=== PATIENT | female | born 1960 | race Caucasian/White ===

== ENCOUNTER 2016-06-09 15:37 | Inpatient (IN) ==
[2016-06-09] MEDS ORDERED: Aspirin 81 MG TAB.CHEW PO ONE (15:46)
[2016-06-09] MEDS ORDERED: Ondansetron 4 MG/2 ML VIAL IVP ONE (15:46)
[2016-06-09] MEDS ORDERED: 0.9 % Sodium Chloride 500 ML IVC ONE (15:47)
[2016-06-09 16:06] LABS: Bilirubin,Urine Negative (Negative); Blood,Urine Negative (Negative); Clarity,Urine Clear (Clear); Color,Urine Yellow (Yellow); Glucose,Urine (UA) Normal (Normal); Ketones,Urine Trace mg/dL (Negative); Leukocyte Esterase,Urine Negative (Negative); Nitrite,Urine Negative (Negative); PH,Urine 5.5 pH Units (5.0-8.0); Protein,Urine Negative (Neg-Trace); Specific Gravity,Urine 1.021 (1.010-1.025); Urobilinogen,Urine Normal (Normal)
[2016-06-09] MEDS ORDERED: 0.9 % Sodium Chloride 1,000 ML IVC SCH (16:15)
[2016-06-09] MEDS ORDERED: Azithromycin 500 MG in D5% in Water 250 ML IVPB ONE (16:16)
[2016-06-09] MEDS ORDERED: Levofloxacin 750 MG/150 ML 750 MG/150 ML BAG IVPB ONE (16:16)
--- NOTE | 2016-06-09 16:37 | Emergency Department Note ---
Disposition Clinical Impression: Severe anemia, Hypokalemia, Hyponatremia GI bleed Qualifiers: GI bleed type/associated pathology: melena Qualified Code(s): K92.1 - Melena Disposition: Admitted As Inpatient Condition: Fair Referrals: NO,PCP [Primary Care Provider] - Time of Disposition: 20:36 General Adult HPI - General Chief complaint: ED Nausea/Vomiting/Diarrhea Stated complaint: diarrhea Source: patient Limitations: no limitations Nursing Notes Reviewed: Yes Vital Signs Reviewed: Yes - History of Present Illness HPI Narrative: Patient is a 56-year-old female presents with a week of generalized weakness, and profuse diarrhea 1 week. Patient denies any past medical history. Pain Scale: 5 - Related Data Home Medications Medication Instructions Recorded Confirmed No Known Home Drugs 06/09/16 06/09/16 Allergies Allergy/AdvReac Type Severity Reaction Status Date / Time No Known Allergies Allergy Verified 06/09/16 16:07 All systems ED: reviewed and negative except as stated. Constitutional: Reports: weakness. Denies: fever, chills ENT ED: Denies: congestion Cardiovascular: Reports: chest pain. Denies: palpitations Respiratory: Denies: cough, dyspnea, wheezes, hemoptysis Gastrointestinal: Reports: diarrhea. Denies: abdominal pain, melena, hematochezia Genitourinary: Denies: urgency, dysuria, frequency, hematuria Musculoskeletal: Denies: back pain, neck pain Neurological: Reports: weakness Endocrine: Reports: fatigue Past Medical History - Past Medical History Attestation: Yes The following information was validated with the patient. Source: patient Medical history: Reports: no medical history Psychiatric history: Reports: anxiety, depression - Social History Smoking Status: Current every day smoker Smokeless Tobacco Status: No Alcohol use: Reports: heavy Drug use: Reports: none Physical Exam - General Limitations: no limitations General appearance: alert - Head Head exam: atraumatic, normocephalic, normal inspection - Eye Eye exam: Present: PERRL, EOMI, other (Conjunctival pallor) - ENT ENT exam: normal exam, normal oropharynx, mucous membranes dry (Pale mucosa) - Neck Neck exam: Present: normal inspection, full ROM, trachea midline. Absent: tenderness, meningismus, lymphadenopathy - Chest Chest inspection: Present: normal inspection, symmetric chest wall rise. Absent : tenderness, rash - Respiratory Respiratory exam: Present: normal lung sounds bilaterally. Absent: respiratory distress, wheezes - Cardiovascular Cardiovascular exam: Present: normal rhythm, tachycardia - Abdominal Exam Abdominal exam: Present: soft, Non-Tender. Absent: tenderness, distention, guarding, rebound, rigidity, Dan's sign, Rovsing's sign, tenderness at McBurney's Point - Rectal Exam Rectal exam: Present: heme (+) stool, black stool - Female Sustainability Executive Director present during exam: Yes - Back Exam Back exam: Present: normal inspection, full ROM. Absent: tenderness, CVA tenderness (R), CVA tenderness (L) - Neurological Exam Neurological exam: Present: alert, oriented X3, CN II-XII intact, other (GCS of 15) - Psychiatric Psychiatric exam: Present: normal affect, normal mood - Skin Skin exam: Present: warm, dry, pallor. Absent: rash Course - Reevaluation(s) Reevaluation #1: Assessment: Sepsis, failure to thrive, ACS/AK, stroke, TIA Plan: Time: 16:02 Reevaluation #2: Patient is currently on a x-ray and CT Time: 16:37 Reevaluation #3: Awaiting to redraw blood patient has a hemoglobin of just over 3, blood has been ordered and has just arrived. Patient is ready had 2 L of normal saline After blood transfusion is initiated patient will be sent for CT abdomen and pelvis to assess for GI bleed cause. 2 units of O- blood have been ordered to shorten delay with a type and screen. Patient started on IV Protonix. Time: 17:56 Additional Reevaluation(s): 1825 hrs., decided to stop antibiotic therapy with ceftriaxone and Levaquin secondary to lack of evidence for pulmonary etiology. With the patient's diarrhea history it may be GI related. He says he initiated antibiotic therapy with Zosyn. Patient has an elevated white count of 16.4, lactic acidosis of 4.8 in addition to her severe anemia with hemoglobin 3.7. In addition patient also has a hypokalemia 128, hypokalemia 3.2. Hemoccult stool is positive. Awaiting results of CT scan of abdomen and pelvis. Of note, patient has been having symptoms for a week now. When asked she states she lives alone, something she has not been eating appropriately, trying to take care of herself in an appropriate manner. Patient is 56 and appears much older than her associated age. Patient appears almost cachectic and smelled of old urine. Patient paints a failure to thrive picture currently and will most likely need social service follow-up. 2021 hours: CT scan abdomen and pelvis: IMPRESSION: Per radiology Large bowel wall thickening particularly in the right colon consistent with an acute nonspecific colitis. There is mild sigmoid colon diverticulosis Patient completed treatment with Zosyn, Cipro and Flagyl canceled Patient is admitted to hospital for further evaluation treatment. ICU was recommended but Hospitalist wants pt to go to stepdown unit. Evaluation complete - Consultations Consultation #1: Dr. Castillo has accepted for admission. Time: 20:27 Vital Signs Temperature 97 F L 06/09/16 15:50 Pulse Rate 98 06/09/16 15:50 Respiratory Rate 22 06/09/16 15:50 Blood Pressure 97/77 06/09/16 15:50 O2 Sat by Pulse Oximetry 96 06/09/16 15:50 Temperature 98.2 F 06/09/16 21:05 Pulse Rate 90 06/09/16 20:19 Respiratory Rate 20 06/09/16 21:05 Blood Pressure 101/56 06/09/16 21:05 O2 Sat by Pulse Oximetry 96 06/09/16 19:34 Oxygen Delivery Oxygen Delivery Nasal Cannula Medical Decision Making - Lab Data Lab results reviewed: Yes I reviewed the patient's lab results. Lab results narrative: Short CBC 06/09/16 Range/Units 16:30 WBC 16.4 H (4.3-11.1) K/mcL Hgb 3.7 L* (11.5-15.4) g/dL Hct 12.6 L* (35.3-44.9) % Plt Count 227 (140-400) K/mcL Neutrophils # 13.1 H (1.6-8.9) K/mcL BMP 06/09/16 Range/Units 16:30 Sodium 128 L (136-145) mEq/L Potassium 3.2 L (3.5-4.5) mEq/L Chloride 95 L (98-109) mEq/L Carbon Dioxide 20 (19-29) mEq/L BUN 42 H (7-20) mg/dL Creatinine 0.59 (0.57-1.11) mg/dL Glucose 121 H (70-99) mg/dL Calcium 7.9 L (8.6-10.8) mg/dL Cardiac Enzymes 06/09/16 Range/Units 16:30 Troponin I 0.01 (0-0.03) ng/mL Liver Function 06/09/16 Range/Units 16:30 Total Bilirubin 0.5 (0.2-1.2) mg/dL Direct Bilirubin 0.3 (0.0-0.5) mg/dL AST 68 H (5-34) Units/L ALT 28 (0-55) Units/L Alkaline Phosphatase 113 (38-126) Units/L Albumin 2.5 L (3.5-5.0) g/dL Urine 06/09/16 Range/Units 15:56 Urine Color Yellow (Yellow) Urine Clarity Clear (Clear) Urine pH 5.5 (5.0-8.0) pH Units Ur Specific Berry 1.021 (1.010-1.025) Urine Protein Negative (Neg-Trace) mg/dL Urine Glucose (UA) Normal (Normal) mg/dL Result diagrams: 06/09/16 16:30 06/09/16 16:30 Lab Results 06/09/16 06/09/16 06/09/16 Range/Units 15:56 16:30 16:30 WBC 16.4 H (4.3-11.1) K/mcL RBC 1.33 L (3.82-4.97) M/mcL Hgb 3.7 L* (11.5-15.4) g/dL Hct 12.6 L* (35.3-44.9) % MCV 94.7 (83.0-100.0) fL MCH 27.8 L (28.0-33.3) pg MCHC 29.4 L (31.6-35.5) g/dL RDW 23.9 H (11.5-14.5) % Plt Count 227 (140-400) K/mcL MPV 11.9 (9.4-12.4) fL Immature Gran % 2.7 (0-4) % Seg Neutrophils % 79.9 % Lymphocytes % 8.7 % Monocytes % 8.6 % Eosinophils % 0.1 % Basophils % 0.0 % Neutrophils # 13.1 H (1.6-8.9) K/mcL Lymphocytes # 1.4 (0.6-4.6) K/mcL Monocytes # 1.4 H (0.0-1.3) K/mcL Eosinophils # 0.0 (0.0-0.6) K/mcL Basophils # 0.0 (0.0-0.2) K/mcL Nucleated RBCs/100 WBC 0.2 H (0) /100 WBC Platelet Estimate Normal (Normal) Polychromasia 3+ A (Not Present) Anisocytosis 2+ A (Not Present) PT 16.6 H (9.4-12.1) Seconds INR 1.5 APTT 22.7 L (26.0-36.0) Seconds Sodium (136-145) mEq/L Potassium (3.5-4.5) mEq/L Chloride (98-109) mEq/L Carbon Dioxide (19-29) mEq/L BUN (7-20) mg/dL Creatinine (0.57-1.11) mg/dL Est GFR ( Amer) (> 60) Est GFR (Non-Af Amer) (> 60) BUN/Creatinine Ratio (6-26) Glucose (70-99) mg/dL Calculated Osmolality (280-300) Lactic Acid (0.5-2.2) mmol/L Calcium (8.6-10.8) mg/dL Phosphorus (2.3-4.7) mg/dL Magnesium (1.6-2.6) mg/dL Total Bilirubin (0.2-1.2) mg/dL Direct Bilirubin (0.0-0.5) mg/dL Indirect Bilirubin (0.0-1.2) mg/dL AST (5-34) Units/L ALT (0-55) Units/L Alkaline Phosphatase (38-126) Units/L Troponin I (0-0.03) ng/mL Serum Total Protein (6.0-8.3) g/dL Albumin (3.5-5.0) g/dL Globulin (2.4-3.5) g/dL Albumin/Globulin Ratio (1.1-2.2) Urine Color Yellow (Yellow) Urine Clarity Clear (Clear) Urine pH 5.5 (5.0-8.0) pH Units Ur Specific Berry 1.021 (1.010-1.025) Urine Protein Negative (Neg-Trace) mg/dL Urine Glucose (UA) Normal (Normal) mg/dL Urine Ketones Trace H (Negative) mg/dL Urine Blood Negative (Negative) Urine Nitrite Negative (Negative) Urine Bilirubin Negative (Negative) Urine Urobilinogen Normal (Normal) mg/dL Ur Leukocyte Esterase Negative (Negative) Ur Culture Indicated? NO (NO) Stool Occult Blood (Negative) Blood Type Antibody Screen Crossmatch 06/09/16 06/09/16 06/09/16 Range/Units 16:30 16:30 16:30 WBC (4.3-11.1) K/mcL RBC (3.82-4.97) M/mcL Hgb (11.5-15.4) g/dL Hct (35.3-44.9) % MCV (83.0-100.0) fL MCH (28.0-33.3) pg MCHC (31.6-35.5) g/dL RDW (11.5-14.5) % Plt Count (140-400) K/mcL MPV (9.4-12.4) fL Immature Gran % (0-4) % Seg Neutrophils % % Lymphocytes % % Monocytes % % Eosinophils % % Basophils % % Neutrophils # (1.6-8.9) K/mcL Lymphocytes # (0.6-4.6) K/mcL Monocytes # (0.0-1.3) K/mcL Eosinophils # (0.0-0.6) K/mcL Basophils # (0.0-0.2) K/mcL Nucleated RBCs/100 WBC (0) /100 WBC Platelet Estimate (Normal) Polychromasia (Not Present) Anisocytosis (Not Present) PT (9.4-12.1) Seconds INR APTT (26.0-36.0) Seconds Sodium 128 L (136-145) mEq/L Potassium 3.2 L (3.5-4.5) mEq/L Chloride 95 L (98-109) mEq/L Carbon Dioxide 20 (19-29) mEq/L BUN 42 H (7-20) mg/dL Creatinine 0.59 (0.57-1.11) mg/dL Est GFR ( Amer) > 60 (> 60) Est GFR (Non-Af Amer) > 60 (> 60) BUN/Creatinine Ratio 71 H (6-26) Glucose 121 H (70-99) mg/dL Calculated Osmolality 278 L (280-300) Lactic Acid 4.8 H* (0.5-2.2) mmol/L Calcium 7.9 L (8.6-10.8) mg/dL Phosphorus 3.5 (2.3-4.7) mg/dL Magnesium 2.1 (1.6-2.6) mg/dL Total Bilirubin 0.5 (0.2-1.2) mg/dL Direct Bilirubin 0.3 (0.0-0.5) mg/dL Indirect Bilirubin 0.2 (0.0-1.2) mg/dL AST 68 H (5-34) Units/L ALT 28 (0-55) Units/L Alkaline Phosphatase 113 (38-126) Units/L Troponin I 0.01 (0-0.03) ng/mL Serum Total Protein 5.3 L (6.0-8.3) g/dL Albumin 2.5 L (3.5-5.0) g/dL Globulin 2.8 (2.4-3.5) g/dL Albumin/Globulin Ratio 0.9 L (1.1-2.2) Urine Color (Yellow) Urine Clarity (Clear) Urine pH (5.0-8.0) pH Units Ur Specific Berry (1.010-1.025) Urine Protein (Neg-Trace) mg/dL Urine Glucose (UA) (Normal) mg/dL Urine Ketones (Negative) mg/dL Urine Blood (Negative) Urine Nitrite (Negative) Urine Bilirubin (Negative) Urine Urobilinogen (Normal) mg/dL Ur Leukocyte Esterase (Negative) Ur Culture Indicated? (NO) Stool Occult Blood (Negative) Blood Type Antibody Screen Crossmatch 06/09/16 06/09/16 06/09/16 Range/Units 17:10 17:26 19:05 WBC (4.3-11.1) K/mcL RBC (3.82-4.97) M/mcL Hgb (11.5-15.4) g/dL Hct (35.3-44.9) % MCV (83.0-100.0) fL MCH (28.0-33.3) pg MCHC (31.6-35.5) g/dL RDW (11.5-14.5) % Plt Count (140-400) K/mcL MPV (9.4-12.4) fL Immature Gran % (0-4) % Seg Neutrophils % % Lymphocytes % % Monocytes % % Eosinophils % % Basophils % % Neutrophils # (1.6-8.9) K/mcL Lymphocytes # (0.6-4.6) K/mcL Monocytes # (0.0-1.3) K/mcL Eosinophils # (0.0-0.6) K/mcL Basophils # (0.0-0.2) K/mcL Nucleated RBCs/100 WBC (0) /100 WBC Platelet Estimate (Normal) Polychromasia (Not Present) Anisocytosis (Not Present) PT (9.4-12.1) Seconds INR APTT (26.0-36.0) Seconds Sodium (136-145) mEq/L Potassium (3.5-4.5) mEq/L Chloride (98-109) mEq/L Carbon Dioxide (19-29) mEq/L BUN (7-20) mg/dL Creatinine (0.57-1.11) mg/dL Est GFR ( Amer) (> 60) Est GFR (Non-Af Amer) (> 60) BUN/Creatinine Ratio (6-26) Glucose (70-99) mg/dL Calculated Osmolality (280-300) Lactic Acid 2.2 (0.5-2.2) mmol/L Calcium (8.6-10.8) mg/dL Phosphorus (2.3-4.7) mg/dL Magnesium (1.6-2.6) mg/dL Total Bilirubin (0.2-1.2) mg/dL Direct Bilirubin (0.0-0.5) mg/dL Indirect Bilirubin (0.0-1.2) mg/dL AST (5-34) Units/L ALT (0-55) Units/L Alkaline Phosphatase (38-126) Units/L Troponin I (0-0.03) ng/mL Serum Total Protein (6.0-8.3) g/dL Albumin (3.5-5.0) g/dL Globulin (2.4-3.5) g/dL Albumin/Globulin Ratio (1.1-2.2) Urine Color (Yellow) Urine Clarity (Clear) Urine pH (5.0-8.0) pH Units Ur Specific Berry (1.010-1.025) Urine Protein (Neg-Trace) mg/dL Urine Glucose (UA) (Normal) mg/dL Urine Ketones (Negative) mg/dL Urine Blood (Negative) Urine Nitrite (Negative) Urine Bilirubin (Negative) Urine Urobilinogen (Normal) mg/dL Ur Leukocyte Esterase (Negative) Ur Culture Indicated? (NO) Stool Occult Blood Positive A (Negative) Blood Type O POSITIVE Antibody Screen NEGATIVE Crossmatch See Detail - Radiology Data Radiology results reviewed: Yes I reviewed the patient's radiology results. Chest X-Ray 06/09/16 15:45 IMPRESSION: No acute cardiopulmonary findings. D/ / Vania Whitehead MD / Vania Whitehead MD Interpreting Provider: Vania Whitehead MD Head CT 06/09/16 15:47 IMPRESSION: No acute intracranial abnormality. D/ / Ricky Puente MD / Ricky Puente MD Interpreting Provider: Ricky Puente MD Abdomen/Pelvis CT 06/09/16 17:59 IMPRESSION: Large bowel wall thickening particularly in the right colon consistent with an acute nonspecific colitis. There is mild sigmoid colon diverticulosis. Cholelithiasis. Greater than normal attenuation of the gallbladder may represent thick bile/ sludge. Gallbladder wall appears mildly thickened. Gallbladder wall ultrasound may be helpful. D/ / Manny Ortiz MD / Manny Ortiz MD Interpreting Provider: Manny Ortiz MD - EKG Data EKG #1 EKG attestation: Yes I reviewed and interpreted this EKG. EKG results narrative: EKG taken in 06/09/2016 a cc and L4 hours shows a sinus rhythm at a rate of 95 bpm with no acute ST elevations presents in many leads. No QRS widened QT elongation. No previous old EKG for comparison Attestation Statement - Attestation Attestation: I examined this patient and my medical decision-making was reviewed with the ANALYSIS SPECIALIST/PA/Advanced Practice Nurse/Resident Physician. I agree with the documented findings, disposition and treatment plan as described except to the extent set forth below. She presents to the emergency department she went generalized weakness. She admits to some diarrhea over the past few weeks. Admits to some blood in it as well. Denies any other significant past medical history. On examination she is frail. Pale. Rectal exam revealed black stool. Plan. She was hypotensive and tachycardic. Septic workup. Show a low hemoglobin and elevated lactate. We dropping hemoglobin. We will begin transfusion. Patient will be admitted to ICU. Patient improved after blood transfusion. Patient with colitis on CT scan. She received IV Zosyn for this. Blood pressure improved. Admitted ICU. 45 minutes of critical care exclusive of separately billed procedures.
[2016-06-09 16:41] LABS: Eosinophils % 0.1 %; Nucleated Red Blood Cells 0.2 /100 WBC (0)
[2016-06-09 16:42] LABS: INR 1.5; Immature Granulocytes % 2.7 % (0-4); Lymphocytes # 1.4 K/mcL (0.6-4.6); Lymphocytes % 8.7 %; Mean Corpuscular HGB Conc 29.4 g/dL (31.6-35.5); Mean Corpuscular Hemoglobin 27.8 pg (28.0-33.3); Mean Corpuscular Volume 94.7 fL (83.0-100.0); Mean Platelet Volume 11.9 fL (9.4-12.4); Monocytes # 1.4 K/mcL (0.0-1.3); Monocytes % 8.6 %; Neutrophils # 13.1 K/mcL (1.6-8.9); Platelet Count 227 K/mcL (140-400); Prothrombin Time 16.6 Seconds (9.4-12.1); Red Blood Count 1.33 M/mcL (3.82-4.97); Red Cell Distribution Width 23.9 % (11.5-14.5); Segmented Neutrophils % 79.9 %
[2016-06-09 16:45] LABS: Activated Partial Thrombo Time 22.7 Seconds (26.0-36.0)
[2016-06-09 16:52] LABS: BUN/Creatinine Ratio 71 (6-26); Blood Urea Nitrogen 42 mg/dL (7-20); Carbon Dioxide 20 mEq/L (19-29); Chloride 95 mEq/L (98-109); Glucose 121 mg/dL (70-99); Potassium 3.2 mEq/L (3.5-4.5); Sodium 128 mEq/L (136-145); eGFR For African Americans > 60 (> 60); eGFR For Non-African Americans > 60 (> 60)
[2016-06-09 16:53] LABS: Alanine Aminotransferase 28 Units/L (0-55); Albumin 2.5 g/dL (3.5-5.0); Albumin/Globulin Ratio 0.9 (1.1-2.2); Alkaline Phosphatase 113 Units/L (38-126); Aspartate Amino Transferase 68 Units/L (5-34); Bilirubin,Direct 0.3 mg/dL (0.0-0.5); Bilirubin,Indirect 0.2 mg/dL (0.0-1.2); Bilirubin,Total 0.5 mg/dL (0.2-1.2); Calcium 7.9 mg/dL (8.6-10.8); Globulin 2.8 g/dL (2.4-3.5); Magnesium 2.1 mg/dL (1.6-2.6); Osmolality,Calculated 278 (280-300); Phosphorous 3.5 mg/dL (2.3-4.7); Total Protein 5.3 g/dL (6.0-8.3)
[2016-06-09] MEDS ORDERED: Pantoprazole 40 MG VIAL IVP ONE (17:17)
[2016-06-09] MEDS ORDERED: Pantoprazole 80 MG in 0.9 % Sodium Chloride 50 ML IVPB ONE (17:21)
[2016-06-09 17:47] LABS: Hemoglobin 3.7 g/dL (11.5-15.4)
[2016-06-09] MEDS ORDERED: 0.9 % Sodium Chloride 250 ML ONE (17:47)
[2016-06-09 17:48] LABS: Hematocrit 12.6 % (35.3-44.9)
[2016-06-09 17:49] LABS: Platelet Estimate Normal (Normal); Polychromasia 3+ (Not Present)
[2016-06-09 17:50] LABS: Anisocytosis 2+ (Not Present)
[2016-06-09] MEDS ORDERED: Piperacillin/Tazobactam 3.375 GM in D5% in Water (Mini-Bag+) 100 ML IVPB ONE (18:24)
[2016-06-09] MEDS ORDERED: MetroNIDAZOLE 500 MG/100 ML 500 MG/100 ML BAG IVPB ONE (20:03)
[2016-06-09] MEDS ORDERED: Naloxone 0.4 MG/ML INJ IVP PRN (23:09)
--- NOTE | 2016-06-09 23:21 | Internal Med History&Physical ---
Date of Encounter: 06/09/16 Time of Encounter: 22:30 Assessment and Plan (1) Severe anemia Status: Acute Likely related to GI bleed / Acute blood loss anemia. Pt started on PRBC transfusion in the ER. Will monitor H&H and transfuse as needed to keep Hgb >8. GI consult (2) GI bleed Status: Acute Likely related to colitis. Emperically start pantoprazole. Will Consult It Infrastructure Consultant for further advice and possible endoscopy / colonoscopy Qualifiers: GI bleed type/associated pathology: unspecified gastrointestinal hemorrhage type Qualified Code(s): K92.2 - Gastrointestinal hemorrhage, unspecified (3) Colitis Status: Acute Stool culture and C.diff. Emperically start on cipro and flagyl (4) Sepsis Status: Acute Likely due to colitis. Will obtain US gall bladder, to exclude cholecystitis. Treat with antibiotics and IV fluids Qualifiers: Sepsis type: sepsis due to unspecified organism Qualified Code(s): A41.9 - Sepsis, unspecified organism (5) Lactic acidosis Status: Acute Possibly due to colitis / sepsis. Unlikely that she has bowel infarction. She does not have abdominal pain / tenderness. Supportive care / antibiotics (6) Cholelithiasis Status: Acute WIll obtain US gall bladder. Qualifiers: Cholelithiasis location: gallbladder Cholecystitis presence: without cholecystitis Biliary obstruction: without biliary obstruction Qualified Code(s): K80.20 - Calculus of gallbladder without cholecystitis without obstruction (7) Alcohol abuse Status: Chronic Pt is started on ETOH withdrawal protocol (8) Weight loss, non-intentional Status: Acute Will check TSH. Will need w/u, possibly as outpatient (9) Hypokalemia Status: Acute Likely due to GI losses / diarrhea. Replenish potassium (10) Hyponatremia Status: Acute Likey due to diarrhea / volume depletion. Monitor sodium levels Internal Medicine - H&P: HPI Chief complaint: Diarrhea; Blood in the BM Admitted From: Emergency Dept Plans for Post Hospital Care: Home History of present illness: Ms. Arambula is a 56 year old female, with no significant past medical hx, lives alone - presents the emergency department with a week of generalized weakness, dizziness, intermittent falls for about 2 weeks and is gradually getting worse. She also reports loose bowel movements/diarrhea with dark blood noted intermittently. Denies black stools, abdominal pain, hematemesis, hematuria, dysuria. She denies chest pain, shortness of breath, cough, expectoration, fever, chills. She denies recent use of antibiotics or any sick contacts. She reports some weight loss since her symptoms started.She was evaluated in the ER and was noted to have hemoglobin of 3.7, positive fecal occult blood. She was started on PRBC transfusion. She is admitted to the hospitalist service for further workup and management. Past Med Surg Social Fam HX - Past Medical History Medical history: arthritis Psychiatric history: anxiety, depression - Social History Smoking Status: Current every day smoker Packs per day: 1.5 Smokeless Tobacco Status: No Alcohol use: heavy Drug use: none - Family History Mother History Unknown: Yes Father History Unknown: Yes - Additional Family History Additional family history: Denies family h/o GI malignancies Internal Medicine - H&P: Meds No Known Home Drugs 06/09/16 [History] Allergies No Known Allergies Allergy (Verified 06/09/16 16:07) All Systems PM: A 10-system review of systems was performed and is negative for pertinent findings except as documented above in the HPI. - Constitutional Vitals: Temp Pulse Resp BP Pulse Ox 98 F 76 14 108/59 100 06/09/16 23:10 06/09/16 23:10 06/09/16 23:10 06/09/16 23:10 06/09/16 23:10 Exam: General: Not in acute distress at the time of my evaluation HEENT: Oral mucosa is moist. conjunctival palor present. No scleral icterus Neck: No obvious neck swellings Lungs: Clear to auscultation Cardiac: Regular rate and rhythm. Systolic murmur present Abdomen: Soft, non tender. Bowel sounds present Genitourinary: No chavez catheter Neurological: Alert and oriented. No gross localizing deficits Psych: Not aggressive or agitated Extremities: no significant leg edema Skin: No generalized rash Internal Med - H&P Results - Labs CBC & Chem 7: 06/11/16 03:37 06/11/16 03:37 - EKG Data -: EKG Interpreted by Myself EKG shows normal: sinus rhythm Rate: normal - Impressions ITS Impressions Chest X-Ray 06/09/16 15:45 IMPRESSION: No acute cardiopulmonary findings. D/ / Vania Whitehead MD / Vania Whitehead MD Interpreting Provider: Vania Whitehead MD Head CT 06/09/16 15:47 IMPRESSION: No acute intracranial abnormality. D/ / Ricky Puente MD / Ricky Puente MD Interpreting Provider: Ricky Puente MD Abdomen/Pelvis CT 06/09/16 17:59 IMPRESSION: Large bowel wall thickening particularly in the right colon consistent with an acute nonspecific colitis. There is mild sigmoid colon diverticulosis. Cholelithiasis. Greater than normal attenuation of the gallbladder may represent thick bile/ sludge. Gallbladder wall appears mildly thickened. Gallbladder wall ultrasound may be helpful. D/ / Manny Ortiz MD / Manny Ortiz MD Interpreting Provider: Manny Ortiz MD
[2016-06-10 00:36] LABS: Mean Corpuscular HGB Conc 33.3 g/dL (31.6-35.5); Mean Corpuscular Hemoglobin 29.2 pg (28.0-33.3); Mean Platelet Volume 10.8 fL (9.4-12.4); Platelet Count 132 K/mcL (140-400); Red Blood Count 2.74 M/mcL (3.82-4.97); Red Cell Distribution Width 16.3 % (11.5-14.5)
[2016-06-10] MEDS: MetroNIDAZOLE 500 MG/100 ML 500 MG/100 ML BAG IVPB SCH ×4 (00:36→23:30)
[2016-06-10 00:37] LABS: Mean Corpuscular Volume 87.6 fL (83.0-100.0)
[2016-06-10 00:50] LABS: BUN/Creatinine Ratio 62 (6-26); Blood Urea Nitrogen 36 mg/dL (7-20); Calcium 7.1 mg/dL (8.6-10.8); Carbon Dioxide 23 mEq/L (19-29); Chloride 100 mEq/L (98-109); Glucose 124 mg/dL (70-99); Lipase 40 Units/L (8-78); Osmolality,Calculated 280 (280-300); Sodium 130 mEq/L (136-145); eGFR For African Americans > 60 (> 60); eGFR For Non-African Americans > 60 (> 60)
[2016-06-10 00:58] LABS: Potassium 2.5 mEq/L (3.5-4.5)
[2016-06-10] MEDS ORDERED: Potassium Chloride 40 MEQ, Lidocaine 1% 2 ML in D5% in Water 500 ML IVPB ONE (02:00)
[2016-06-10 03:31] LABS: Basophils % 0.2 %; Eosinophils % 0.3 %; Hematocrit 24.3 % (35.3-44.9); Hemoglobin 8.1 g/dL (11.5-15.4); Immature Granulocytes % 2.5 % (0-4); Lymphocytes # 1.4 K/mcL (0.6-4.6); Lymphocytes % 12.4 %; Mean Corpuscular HGB Conc 33.3 g/dL (31.6-35.5); Mean Corpuscular Hemoglobin 28.8 pg (28.0-33.3); Mean Corpuscular Volume 86.5 fL (83.0-100.0); Monocytes # 1.7 K/mcL (0.0-1.3); Monocytes % 14.7 %; Neutrophils # 8.1 K/mcL (1.6-8.9); Nucleated Red Blood Cells 3.6 /100 WBC (0); Platelet Count 131 K/mcL (140-400); Red Blood Count 2.81 M/mcL (3.82-4.97); Red Cell Distribution Width 16.2 % (11.5-14.5); Segmented Neutrophils % 69.9 %
[2016-06-10 03:42] LABS: BUN/Creatinine Ratio 53 (6-26); Blood Urea Nitrogen 31 mg/dL (7-20); Calcium 7.3 mg/dL (8.6-10.8); Carbon Dioxide 21 mEq/L (19-29); Chloride 101 mEq/L (98-109); Glucose 71 mg/dL (70-99); Osmolality,Calculated 277 (280-300); Potassium 2.6 mEq/L (3.5-4.5); Sodium 131 mEq/L (136-145); eGFR For African Americans > 60 (> 60); eGFR For Non-African Americans > 60 (> 60)
[2016-06-10] MEDS ORDERED: Pantoprazole 40 MG VIAL IVP SCH (06:30)
--- NOTE | 2016-06-10 08:07 | Pulmonology Consult Note ---
<SimranmjDarren mesa M - Last Filed: 06/10/16 09:43> Date of Encounter: 06/10/16 Medications and Allergies No Known Home Drugs 06/09/16 [History] Allergies No Known Allergies Allergy (Verified 06/09/16 16:07) All Systems: A 10-system review of systems was performed and is negative for pertinent findings except as documented above in the HPI. Physical Examination Vital Signs: Vital Signs, Last 4 Hours Temp Pulse Resp BP Pulse Ox 06/10/16 08:00 80 20 88/56 06/10/16 07:41 98.4 F 06/10/16 07:00 78 06/10/16 06:00 80 17 85/49 100 Results - Laboratory Findings CBC and BMP: 06/10/16 03:01 06/10/16 03:01 PT/INR, D-dimer PT 16.6 Seconds (9.4-12.1) H 06/09/16 16:30 Abnormal lab findings: Abnormal lab results WBC 11.6 K/mcL (4.3-11.1) H 06/10/16 03:01 RBC 2.81 M/mcL (3.82-4.97) L 06/10/16 03:01 Hgb 8.1 g/dL (11.5-15.4) L 06/10/16 03:01 Hct 24.3 % (35.3-44.9) L 06/10/16 03:01 RDW 16.2 % (11.5-14.5) H 06/10/16 03:01 Plt Count 131 K/mcL (140-400) L 06/10/16 03:01 Monocytes # 1.7 K/mcL (0.0-1.3) H 06/10/16 03:01 Nucleated RBCs/100 WBC 3.6 /100 WBC (0) H 06/10/16 03:01 Polychromasia 3+ (Not Present) A 06/09/16 16:30 Anisocytosis 2+ (Not Present) A 06/09/16 16:30 PT 16.6 Seconds (9.4-12.1) H 06/09/16 16:30 APTT 22.7 Seconds (26.0-36.0) L 06/09/16 16:30 Sodium 131 mEq/L (136-145) L 06/10/16 03:01 Potassium 2.6 mEq/L (3.5-4.5) L 06/10/16 03:01 BUN 31 mg/dL (7-20) H 06/10/16 03:01 BUN/Creatinine Ratio 53 (6-26) H 06/10/16 03:01 POC Glucose 102 (58-89) H 06/09/16 21:27 Calculated Osmolality 277 (280-300) L 06/10/16 03:01 Calcium 7.3 mg/dL (8.6-10.8) L 06/10/16 03:01 AST 68 Units/L (5-34) H 06/09/16 16:30 Serum Total Protein 5.3 g/dL (6.0-8.3) L 06/09/16 16:30 Albumin 2.5 g/dL (3.5-5.0) L 06/09/16 16:30 Albumin/Globulin Ratio 0.9 (1.1-2.2) L 06/09/16 16:30 Urine Ketones Trace mg/dL (Negative) H 06/09/16 15:56 Stool Occult Blood Positive (Negative) A 06/09/16 17:10 - Clinical Findings Intake & Output: Intake & Output 06/09/16 06/10/16 06/10/16 23:59 07:59 15:59 Intake Total 50 / 2400 100 / 100 600 / 600 Output Total 250 / 250 0 / 0 Balance -200 / 2150 100 / 100 600 / 600 Weight 42.6 kg Consult Discharge Plan - Plan Referrals: NO,PCP [Primary Care Provider] - - Attending Attestation I examined this patient and my medical decision-making was reviewed with the CHILDREN'S PROGRAM COORDINATOR/PA/Advanced Practice Nurse/Resident Physician. I agree with the documented findings, disposition and treatment plan as described except to the extent set forth below. Patient seen and examined. Labs, radiology, chart personally reviewed. Agree with resident's history and physical, assessment, plan with following comments: HAT FORMER: Patient follows commands, Pulmonary: Acceptable oxygenation and ventilation Cardiovascular: stable GI: Nutrition per dietary and GI prophylaxis per routine. Patient takes significant amount of aspirin because she thinks it helps her to sleep and also there are evidence of colitis and patient never had colonoscopy before. We will consult GI tomorrow since GI service is not available today, however if she start to bleed, then will consult endoscopy team. Patient has significant weight loss and it is concerning. Patient will need colonoscopy and inflammatory bowel disease is in the differential diagnosis. Heme: DVT prophylaxis per routine. Monitor H&H and transfuse if there is any evidence of drop in H&H. ID: Continue antibiotics and plan to de-escalation. Renal; urine out put and renal funtion reviewed Endorcine: blood glucose is monitored Lines: all lines checked and no evidence of infections Skin: skin care to prevent pressure ulcers per nursing routine care Will monitor in ICU today and hopefully she will remain stable and be transferred out tomorrow. Thank you very much for the consultation <Manny Jernigan - Last Filed: 06/10/16 15:27> Date of Encounter: 06/10/16 Time of Encounter: 08:06 Assessment and Plan (1) Blood loss anemia Current Visit: Yes Status: Acute Patient received total of 3 units of PRBC transfusion, her hemoglobin improved from 3.7 to 8.1, repeated hemoglobin 6 hours later with a stable level around 8.5. Patient is currently hemodynamically stable, she is not actively bleeding , with her history of taking aspirin every day and CT abdomen findings of non specific acute colitis, patient will need upper and lower endoscopy tomorrow with GI consult. Patient denies recent sick contacts, travel history, eating anything unusual, we will check for C. difficile stool test along with stool culture. We will trend hemoglobin tonight and recheck in the morning. Hopefully patient can be transferred out of ICU tomorrow. (2) Colitis, acute Current Visit: Yes Status: Acute CT abdomen without contrast showed large bowel wall thickening in the right colon, consistent with acute nonspecific colitis, inflammatory versus infectious , continue Cipro and Flagyl IV antibiotics, stool culture/C. difficile tests are pending, patient will need GI consult tomorrow for endoscopy. (3) Severe sepsis Current Visit: Yes Status: Acute Lactic acidosis, leukocytosis, tachycardia, hypotension, likely source is acute colitis, continue Cipro and Flagyl IV, blood/stool cultures are pending, lactic acidosis and leukocytosis improved, patient is currently hemodynamically stable with lactated Ringer IV maintenance fluid. (4) Lactic acidosis Current Visit: Yes Status: Acute Likely secondary to impairment in tissue oxygenation from severe anemia on top of severe sepsis, lactic level normalized. (5) Hypokalemia Current Visit: Yes Status: Acute We will replace it today and recheck level in the morning, magnesium level is 2.0 today. (6) DVT prophylaxis Current Visit: Yes Status: Acute IPC. History of Present Illness Consult date: 06/10/16 Requesting physician: Grady Salmeron Reason for consult: other (Blood loss anemia) Chief complaint: Blood loss anemia History of present illness: This is a 56-year-old female with a history of anxiety and depression who presented to the ER with chief complaint of generalized weakness, lightheadedness and intermittent fall over the last 2 weeks and it has been gradually getting worse. She also states that she has been having loose bowel/ diarrhea with dark blood noted occasionally, she admitted to the fact that she takes 6 pills of aspirin every day to help her sleep, she has no history of EGD or colonoscopy in the past. In the ER she was found to have a hemoglobin of 3.7 with positive fecal blood test. She received a total of 3 units of PRBC transfusion and her hemoglobin improved to 8.1, she was subsequently admitted to the ICU for close monitoring and further management. Past Med Surg Social Fam HX - Past Medical History Medical history: arthritis Psychiatric history: anxiety, depression - Past Surgical History Surgical History: no surgical history - Social History Smoking Status: Current every day smoker Packs per day: 1.5 Smokeless Tobacco Status: No Alcohol use: heavy Drug use: none - Family History Mother History Unknown: Yes Father History Unknown: Yes All Systems: A 10-system review of systems was performed and is negative for pertinent findings except as documented above in the HPI. Review of Systems: Patient admits lightheadedness, generalized weakness, intermittent fall, dark blood in loose stool, recent loss of weight over 10 pounds over 3 weeks, denies fever, chill, headache, nausea, vomiting, productive cough, chest pain, abdominal pain, constipation, or dysuria. Physical Examination Vital Signs: Vital Signs, Last 4 Hours Temp Pulse Resp BP Pulse Ox 06/10/16 07:41 98.4 F 06/10/16 06:00 80 17 85/49 100 06/10/16 05:00 74 15 84/46 100 General appearance: no acute distress, alert, other (skinny) Eyes: nonicteric ENT: oropharynx moist Neck: supple Effort: normal Inspection: normal Auscultation: bilateral: clear Cardiovascular: regular rate and rhythm Gastrointestinal: normoactive bowel sounds, soft, non-tender, non-distended Integumentary: normal Extremities: no cyanosis, no edema, no clubbing, pink and warm, pulses normal, other (Capillary refill less than 2 seconds) Musculoskeletal: no deformities normal mental status, non-focal exam, pupils equal and round, CN II-XII normal mood appropriate, affect normal Results - Laboratory Findings CBC and BMP: 06/10/16 14:35 06/10/16 10:59 PT/INR, D-dimer PT 16.6 Seconds (9.4-12.1) H 06/09/16 16:30 Abnormal lab findings: Abnormal lab results WBC 11.6 K/mcL (4.3-11.1) H 06/10/16 03:01 RBC 2.81 M/mcL (3.82-4.97) L 06/10/16 03:01 Hgb 8.1 g/dL (11.5-15.4) L 06/10/16 03:01 Hct 24.3 % (35.3-44.9) L 06/10/16 03:01 RDW 16.2 % (11.5-14.5) H 06/10/16 03:01 Plt Count 131 K/mcL (140-400) L 06/10/16 03:01 Monocytes # 1.7 K/mcL (0.0-1.3) H 06/10/16 03:01 Nucleated RBCs/100 WBC 3.6 /100 WBC (0) H 06/10/16 03:01 Polychromasia 3+ (Not Present) A 06/09/16 16:30 Anisocytosis 2+ (Not Present) A 06/09/16 16:30 PT 16.6 Seconds (9.4-12.1) H 06/09/16 16:30 APTT 22.7 Seconds (26.0-36.0) L 06/09/16 16:30 Sodium 131 mEq/L (136-145) L 06/10/16 03:01 Potassium 2.6 mEq/L (3.5-4.5) L 06/10/16 03:01 BUN 31 mg/dL (7-20) H 06/10/16 03:01 BUN/Creatinine Ratio 53 (6-26) H 06/10/16 03:01 POC Glucose 102 (58-89) H 06/09/16 21:27 Calculated Osmolality 277 (280-300) L 06/10/16 03:01 Calcium 7.3 mg/dL (8.6-10.8) L 06/10/16 03:01 AST 68 Units/L (5-34) H 06/09/16 16:30 Serum Total Protein 5.3 g/dL (6.0-8.3) L 06/09/16 16:30 Albumin 2.5 g/dL (3.5-5.0) L 06/09/16 16:30 Albumin/Globulin Ratio 0.9 (1.1-2.2) L 06/09/16 16:30 Urine Ketones Trace mg/dL (Negative) H 06/09/16 15:56 Stool Occult Blood Positive (Negative) A 06/09/16 17:10 - Clinical Findings Intake & Output: Intake & Output 06/09/16 06/10/16 06/10/16 23:59 07:59 15:59 Intake Total 50 / 2400 100 / 100 Output Total 250 / 250 0 / 0 Balance -200 / 2150 100 / 100 Weight 42.6 kg
[2016-06-10] MEDS ORDERED: 0.9 % Sodium Chloride 500 ML IVC ONE (08:15)
--- NOTE | 2016-06-10 08:16 | Internal Med Progress Note ---
Date of Encounter: 06/10/16 Time of Encounter: 08:12 - Assessment and plan (1) Tobacco abuse Current Visit: Yes Status: Acute (2) Severe anemia Current Visit: Yes Status: Acute Assessment and plan: She received 3 units of PRBC. Close monitoring of hemoglobin and hematocrit. (3) GI bleed Current Visit: Yes Status: Acute Assessment and plan: The patient reports a history of bloody diarrhea for 2 weeks. She presented to the hospital with weakness and dizziness. Workup done in the emergency department found hemoglobin of 3.7. She was transfused 3 units of PRBC. Currently her blood pressure is 88/56, as low as 85/49 earlier this morning. The patient would benefit from critical care evaluation while here in the intensive care unit. We will consult pulmonary critical care service. Check hemoglobin and hematocrit every 6 hours. Repeat hemoglobin posttransfusion was 8 which indicates appropriate response to transfusion. DVT prophylaxis with SCDs. No anticoagulation due to GI bleed. Qualifiers: GI bleed type/associated pathology: melena Qualified Code(s): K92.1 - Melena (4) Colitis Current Visit: Yes Status: Acute Assessment and plan: CT of the abdomen and pelvis revealed colitis. She will receive Zosyn and Cipro and Flagyl. We will follow-up stool culture, continue treatment with ciprofloxacin and Flagyl. (5) Sepsis Current Visit: Yes Status: Acute Assessment and plan: Severe sepsis with lactic acid of 2.2. She received appropriate fluid resuscitation and her lactic acid repeat was 0.8. Continue broad spectrum IV antibiotics. Follow-up blood cultures. Qualifiers: Sepsis type: sepsis due to unspecified organism Qualified Code(s): A41.9 - Sepsis, unspecified organism (6) Lactic acidosis Current Visit: Yes Status: Acute (7) Alcohol abuse Current Visit: Yes Status: Acute - Subjective Interval history: She presented to the hospital yesterday with dizziness, generalized weakness worse upon standing. She reports 2 weeks of bloody diarrhea. She had 2 episodes of vomiting 2 days ago denies hematemesis. Currently she denies abdominal pain. - Constitutional Vitals: Temp Pulse Resp BP Pulse Ox 98.4 F 80 17 85/49 100 06/10/16 07:41 06/10/16 06:00 06/10/16 06:00 06/10/16 06:00 06/10/16 06:00 General appearance: Present: A&O X 3, no acute distress - Eye Eye exam: Present: PERRL, conjuntiva pink, sclera anicteric Pupils: Present: PERRL - Respiratory Respiratory exam: Present: CTAB. Absent: accessory muscle use, rales, rhonchi, wheezes - Cardiovascular Cardiovascular exam: Present: RRR, +S1, +S2. Absent: diastolic murmur, gallop, rubs, systolic murmur - GI/Abdominal GI/Abdominal exam: Present: normal bowel sounds, soft, no peritoneal signs. Absent: distended, tenderness - Extremities Exam Extremities exam: Present: warm, radial pulses palpable and symetrical. Absent : calf tenderness, cyanotic, pedal edema - Skin Skin exam: Present: dry, intact Internal Medicine: Result - Labs CBC & Chem 7: 06/10/16 03:01 06/10/16 03:01 Labs: Short CBC 06/10/16 06/10/16 Range/Units 00:29 03:01 WBC 10.8 11.6 H (4.3-11.1) K/mcL Hgb 8.0 L D 8.1 L (11.5-15.4) g/dL Hct 24.0 L 24.3 L (35.3-44.9) % Plt Count 132 L 131 L (140-400) K/mcL Neutrophils # 8.1 (1.6-8.9) K/mcL BMP 06/10/16 06/10/16 00:29 03:01 Sodium 130 L 131 L Potassium 2.5 L* 2.6 L Chloride 100 101 Carbon Dioxide 23 21 BUN 36 H 31 H Creatinine 0.58 0.58 Glucose 124 H 71 Calcium 7.1 L 7.3 L - ABG Interpretation ABG results: PT/INR, D-dimer PT 16.6 Seconds (9.4-12.1) H 06/09/16 16:30 Consult Discharge Plan - Plan Referrals: NO,PCP [Primary Care Provider] -
[2016-06-10] MEDS: Folic Acid 1 MG TABLET PO SCH (08:44)
[2016-06-10] MEDS: Thiamine (B-1) 100 MG TABLET PO SCH (08:47)
[2016-06-10 11:06] LABS: Hematocrit 24.7 % (35.3-44.9); Hemoglobin 8.4 g/dL (11.5-15.4)
[2016-06-10 11:17] LABS: BUN/Creatinine Ratio 48 (6-26); Blood Urea Nitrogen 27 mg/dL (7-20); Calcium 7.4 mg/dL (8.6-10.8); Carbon Dioxide 18 mEq/L (19-29); Chloride 103 mEq/L (98-109); Glucose 79 mg/dL (70-99); Osmolality,Calculated 276 (280-300); Potassium 3.3 mEq/L (3.5-4.5); Sodium 131 mEq/L (136-145); eGFR For African Americans > 60 (> 60); eGFR For Non-African Americans > 60 (> 60)
[2016-06-10 14:51] LABS: Hematocrit 25.9 % (35.3-44.9); Hemoglobin 8.5 g/dL (11.5-15.4)
[2016-06-10] MEDS: Pantoprazole 40 MG VIAL IVP SCH (16:17)
[2016-06-10] MEDS: Ringers Solution, Lactated 1,000 ML IVC SCH ×2 (20:28→20:30)
[2016-06-10 21:26] LABS: Hematocrit 26.2 % (35.3-44.9); Hemoglobin 8.7 g/dL (11.5-15.4)
[2016-06-11] MEDS: Ringers Solution, Lactated 1,000 ML IVC SCH (03:23)
[2016-06-11 04:06] LABS: Basophils % 0.3 %; Eosinophils # 0.1 K/mcL (0.0-0.6); Eosinophils % 1.1 %; Hematocrit 22.5 % (35.3-44.9); Hemoglobin 7.6 g/dL (11.5-15.4); Immature Granulocytes % 4.1 % (0-4); Lymphocytes # 1.6 K/mcL (0.6-4.6); Lymphocytes % 17.7 %; Mean Corpuscular HGB Conc 33.8 g/dL (31.6-35.5); Mean Corpuscular Hemoglobin 29.5 pg (28.0-33.3); Mean Corpuscular Volume 87.2 fL (83.0-100.0); Mean Platelet Volume 10.8 fL (9.4-12.4); Monocytes # 1.6 K/mcL (0.0-1.3); Monocytes % 18.6 %; Neutrophils # 5.1 K/mcL (1.6-8.9); Nucleated Red Blood Cells 1.6 /100 WBC (0); Platelet Count 135 K/mcL (140-400); Red Blood Count 2.58 M/mcL (3.82-4.97); Red Cell Distribution Width 17.8 % (11.5-14.5); Segmented Neutrophils % 58.2 %
[2016-06-11 04:16] LABS: BUN/Creatinine Ratio 41 (6-26); Blood Urea Nitrogen 18 mg/dL (7-20); Calcium 7.4 mg/dL (8.6-10.8); Carbon Dioxide 19 mEq/L (19-29); Chloride 106 mEq/L (98-109); Glucose 86 mg/dL (70-99); Osmolality,Calculated 273 (280-300); Potassium 3.6 mEq/L (3.5-4.5); Sodium 131 mEq/L (136-145); eGFR For African Americans > 60 (> 60); eGFR For Non-African Americans > 60 (> 60)
[2016-06-11 04:44] LABS: Platelet Estimate Normal (Normal); Polychromasia 1+ (Not Present)
[2016-06-11] MEDS: Pantoprazole 40 MG VIAL IVP SCH (05:20)
[2016-06-11] MEDS: Thiamine (B-1) 100 MG TABLET PO SCH (08:40)
[2016-06-11] MEDS: MetroNIDAZOLE 500 MG/100 ML 500 MG/100 ML BAG IVPB SCH (08:40)
[2016-06-11] MEDS: Folic Acid 1 MG TABLET PO SCH (08:40)
--- NOTE | 2016-06-11 09:15 | Electrocardiograph Report ---
[place] [id number] Test Date: 2016-06-09 Pat Name: Nilda Arambula Department: 105 Room: [facility] Gender: F Lean Sensei: : 1960 Requested By: Adonis Wolf Order Number: [id number] Reading MD: Odilon Lopez MD Measurements Intervals [place] Rate: 95 P: 65 WV: 118 QRS: 69 QRSD: 89 T: 75 QT: 407 QTc: 459 Interpretive Statements SINUS RHYTHM WITH SHORT [place] INTERVAL BASELINE ARTIFACT Electronically Signed On 06-11-2016 9:14:13 EDT by Odilon Lopez MD
[2016-06-11] MEDS ORDERED: Nicotine 21 MG PATCH.TD24 TD PRN (11:21)
[2016-06-11 12:16] VITALS: BP 105/74
--- NOTE | 2016-06-11 14:54 | Pulmonology Progress Note ---
<Abdullahi Monroe - Last Filed: 06/11/16 14:52> Date of Encounter: 06/11/16 Time of Encounter: 11:20 Assessment and Plan (1) Blood loss anemia Status: Acute GI consult was placed for further workup, but the patient signed out AMA prior to further evaluation for her blood loss anemia. (2) Hypokalemia Status: Acute Was 3.6 this AM. (3) Lactic acidosis Status: Acute Normalized yesterday at .8 (4) Severe sepsis Status: Acute Possibly secondary to colitis. The patient was on metronidazole and ciprofloxacin prior to leaving AMA. Once again risks of leaving were discussed with the patient, she expressed understanding before signing AMA paperwork. (5) DVT prophylaxis Status: Acute Subjective Principal diagnosis: blood loss anemia Interval history: The patient reported feeling better this morning and did not wish to stay in the hospital. She reported wanting to go home despite recommendations that she should stay for further workup. Risks were explained to the patient and she expressed understanding, but proceeded to sign out AMA. Objective PUL Vital signs: Last Vital Signs Temp 98.7 F 06/11/16 08:29 Pulse 81 06/11/16 11:06 Resp 23 06/11/16 11:06 BP 105/74 06/11/16 11:06 Pulse Ox 88 06/11/16 11:06 General appearance: no acute distress Eyes: nonicteric ENT: oropharynx moist Neck: supple Effort: normal Cardiovascular: regular rate and rhythm Gastrointestinal: normoactive bowel sounds Integumentary: normal Extremities: no cyanosis Musculoskeletal: no deformities non-focal exam Results - Laboratory Findings CBC and BMP: 06/11/16 03:37 06/11/16 03:37 PT/INR, D-dimer PT 16.6 Seconds (9.4-12.1) H 06/09/16 16:30 Abnormal lab findings: Abnormal lab results RBC 2.58 M/mcL (3.82-4.97) L 06/11/16 03:37 Hgb 7.6 g/dL (11.5-15.4) L 06/11/16 03:37 Hct 22.5 % (35.3-44.9) L 06/11/16 03:37 RDW 17.8 % (11.5-14.5) H 06/11/16 03:37 Plt Count 135 K/mcL (140-400) L 06/11/16 03:37 Immature Gran % 4.1 % (0-4) H 06/11/16 03:37 Monocytes # 1.6 K/mcL (0.0-1.3) H 06/11/16 03:37 Nucleated RBCs/100 WBC 1.6 /100 WBC (0) H 06/11/16 03:37 Polychromasia 1+ (Not Present) A 06/11/16 03:37 Anisocytosis 2+ (Not Present) A 06/09/16 16:30 PT 16.6 Seconds (9.4-12.1) H 06/09/16 16:30 APTT 22.7 Seconds (26.0-36.0) L 06/09/16 16:30 Sodium 131 mEq/L (136-145) L 06/11/16 03:37 Creatinine 0.44 mg/dL (0.57-1.11) L 06/11/16 03:37 BUN/Creatinine Ratio 41 (6-26) H 06/11/16 03:37 POC Glucose 102 (58-89) H 06/09/16 21:27 Calculated Osmolality 273 (280-300) L 06/11/16 03:37 Calcium 7.4 mg/dL (8.6-10.8) L 06/11/16 03:37 AST 68 Units/L (5-34) H 06/09/16 16:30 Serum Total Protein 5.3 g/dL (6.0-8.3) L 06/09/16 16:30 Albumin 2.5 g/dL (3.5-5.0) L 06/09/16 16:30 Albumin/Globulin Ratio 0.9 (1.1-2.2) L 06/09/16 16:30 Urine Ketones Trace mg/dL (Negative) H 06/09/16 15:56 Stool Occult Blood Positive (Negative) A 06/09/16 17:10 - Clinical Findings Intake & Output: Intake & Output 06/10/16 06/11/16 06/11/16 23:59 07:59 15:59 Intake Total 780 / 780 400 / 400 Output Total 25 / 25 200 / 200 Balance 755 / 755 200 / 200 Weight 44.7 kg Consult Discharge Plan - Plan Referrals: NO,PCP [Primary Care Provider] - - Attending Attestation I examined this patient and my medical decision-making was reviewed with the FISH HATCHERY SUPERVISOR/PA/Advanced Practice Nurse/Resident Physician. I agree with the documented findings, disposition and treatment plan as described except to the extent set forth below. <Davi Childress - Last Filed: 06/12/16 07:07> Date of Encounter: 06/12/16 Objective PUL Vital signs: Last Vital Signs Temp 98.7 F 06/11/16 08:29 Pulse 81 06/11/16 11:06 Resp 23 06/11/16 11:06 BP 105/74 06/11/16 11:06 Pulse Ox 88 06/11/16 11:06 Results - Laboratory Findings CBC and BMP: 06/11/16 03:37 06/11/16 03:37 PT/INR, D-dimer PT 16.6 Seconds (9.4-12.1) H 06/09/16 16:30 Abnormal lab findings: Abnormal lab results RBC 2.58 M/mcL (3.82-4.97) L 06/11/16 03:37 Hgb 7.6 g/dL (11.5-15.4) L 06/11/16 03:37 Hct 22.5 % (35.3-44.9) L 06/11/16 03:37 RDW 17.8 % (11.5-14.5) H 06/11/16 03:37 Plt Count 135 K/mcL (140-400) L 06/11/16 03:37 Immature Gran % 4.1 % (0-4) H 06/11/16 03:37 Monocytes # 1.6 K/mcL (0.0-1.3) H 06/11/16 03:37 Nucleated RBCs/100 WBC 1.6 /100 WBC (0) H 06/11/16 03:37 Polychromasia 1+ (Not Present) A 06/11/16 03:37 Anisocytosis 2+ (Not Present) A 06/09/16 16:30 PT 16.6 Seconds (9.4-12.1) H 06/09/16 16:30 APTT 22.7 Seconds (26.0-36.0) L 06/09/16 16:30 Sodium 131 mEq/L (136-145) L 06/11/16 03:37 Creatinine 0.44 mg/dL (0.57-1.11) L 06/11/16 03:37 BUN/Creatinine Ratio 41 (6-26) H 06/11/16 03:37 POC Glucose 102 (58-89) H 06/09/16 21:27 Calculated Osmolality 273 (280-300) L 06/11/16 03:37 Calcium 7.4 mg/dL (8.6-10.8) L 06/11/16 03:37 AST 68 Units/L (5-34) H 06/09/16 16:30 Serum Total Protein 5.3 g/dL (6.0-8.3) L 06/09/16 16:30 Albumin 2.5 g/dL (3.5-5.0) L 06/09/16 16:30 Albumin/Globulin Ratio 0.9 (1.1-2.2) L 06/09/16 16:30 Urine Ketones Trace mg/dL (Negative) H 06/09/16 15:56 Stool Occult Blood Positive (Negative) A 06/09/16 17:10 - Attending Attestation I saw and examined the pt and agree with the above documentation. Pt expressed desire to leave ICU AMA. Pt was advised at length on the risk of this course of action including recurrence of suspect GI bleeding and . Pt expressed understanding and stated she was willing to accept the risk, citing personal matters that required her attention at her home. Pt demonstrated capacity for decision making. Pt signed AMA paperwork and left under her own power.
== END 2016-06-11 12:05 | disposition left against medical advice (07) | DRG 720 ==
LOC: EMEROO 15:37 → ICNU 20:41
PROVIDERS: ADMIT Internal Medicine; ATTEND Internal Medicine